=== PATIENT | female | born 1945 | race Caucasian/White ===

== ENCOUNTER 2018-07-03 08:04 | Emergency (ER) | payer OTHER ==
[~2018-07-03] VITALS: Ht 154.9 cm; Wt 82.2 kg
[~2018-07-03 08:04] MED LIST: ALIGN4 MG PO; AMLODIPINE-BEN1 EAC3 PO; ASPIR 8181 M1 PO; BIOTIN1000 MCG PO; FEROSUL325 MG PO; SIMVASTATIN40 MG PO; VOLTAREN 1% GE100 GM TP
[2018-07-03] MEDS ORDERED: PERCOCET 5/31 TABLET PO (09:45)
[2018-07-03] MEDS ORDERED: FLEXERIL10 MG PO (10:03)
[2018-07-03 10:15] VITALS: BP 135/81
== END 2018-07-03 10:16 | disposition home or self-care (01) ==
LOC: EME 08:04
DX: M79.604 Pain in right leg (principal); M79.1 Myalgia; I10 Essential (primary) hypertension; E78.5 Hyperlipidemia, unspecified; K58.9 Irritable bowel syndrome, unspecified; Z88.0 Allergy status to penicillin
CPT/HCPCS: 73564; 93971; 99281; 99284